=== PATIENT | female | born 1955 | race Caucasian/White ===

== ENCOUNTER 2018-11-19 06:55 | Emergency (ER) | payer BC ==
[~2018-11-19] VITALS: Ht 167.6 cm; Wt 61.2 kg
--- OUTSIDE RECORDS SUMMARY | 2018-11-19 06:58 | XMS REPORT ---
Author Author [facility] Address Unknown Phone Unavailable Care Team Providers Care Oracle Fusion Middleware Developer Name Role Phone Unavailable Unavailable Problems This patient has no known problems. Allergies, Adverse Reactions, Alerts This patient has no known allergies or adverse reactions. Medications This patient has no known medications. Encounters Start Date/Time End Date/Time Encounter Type Admission Type Attending [facility] Care Department Encounter ID 2018-04-20 00:00:00 2018-04-20 00:00:00 Outpatient [facility] [id number] 2018-04-02 00:00:00 2018-04-02 00:00:00 Outpatient [facility] [id number] 2018-03-08 00:00:00 2018-03-08 00:00:00 Outpatient [facility] [id number] 2018-02-23 00:00:00 2018-02-23 00:00:00 Outpatient [facility] [id number] 2018-02-16 00:00:00 2018-02-16 00:00:00 Outpatient [facility] [id number] 2018-02-14 00:00:00 2018-02-14 00:00:00 Outpatient [facility] [id number] 2018-02-06 14:08:50 2018-02-06 14:08:50 Outpatient [facility] [id number] 2018-02-02 00:00:00 2018-02-02 00:00:00 Outpatient [facility] [id number] 2018-01-29 09:17:04 2018-01-29 09:17:04 Outpatient [facility] [id number] 2018-01-15 00:00:00 2018-01-15 00:00:00 Outpatient [facility] [id number] 2018-01-12 00:00:00 2018-01-12 00:00:00 Outpatient [facility] [id number] 2018-01-11 00:00:00 2018-01-11 00:00:00 Outpatient [facility] [id number] 2017-12-29 13:00:10 2017-12-29 13:00:10 Outpatient [facility] [id number] 2017-12-29 00:00:00 2017-12-29 00:00:00 Outpatient [facility] [id number] 2017-12-22 00:00:00 2017-12-22 00:00:00 Outpatient [facility] [id number] 2017-11-20 00:00:00 2017-11-20 00:00:00 Outpatient [facility] [id number] 2017-11-20 00:00:00 2017-11-20 00:00:00 Outpatient [facility] [id number] 2017-11-02 00:00:00 2017-11-02 00:00:00 Outpatient [facility] [id number] 2017-10-24 00:00:00 2017-10-24 00:00:00 Outpatient [facility] [id number] 2017-10-13 09:36:00 2017-10-13 09:36:00 Outpatient [facility] [id number] 2017-09-28 00:00:00 2017-09-28 00:00:00 Outpatient [facility] [id number] 2017-09-20 00:00:00 2017-09-20 00:00:00 Outpatient [facility] [id number] 2017-09-13 00:00:00 2017-09-13 00:00:00 Outpatient [facility] [id number] 2017-09-08 00:00:00 2017-09-08 00:00:00 Outpatient [facility] [id number] 2017-08-01 00:00:00 2017-08-01 00:00:00 Outpatient [facility] [id number] 2017-07-10 00:00:00 2017-07-10 00:00:00 Outpatient [facility] [id number] 2017-07-06 00:00:00 2017-07-06 00:00:00 Outpatient [facility] [id number] 2017-07-04 00:00:00 2017-07-04 00:00:00 Outpatient [facility] [id number] 2017-06-09 10:33:42 2017-06-09 10:33:42 Outpatient [facility] [id number] 2017-06-07 00:00:00 2017-06-07 00:00:00 Outpatient [facility] [id number] 2017-06-06 16:25:18 2017-06-06 16:25:18 Outpatient [facility] [id number] 2017-05-29 07:57:03 2017-05-29 07:57:03 Outpatient [facility] [id number] 2017-05-29 00:00:00 2017-05-29 00:00:00 Outpatient [facility] [id number] 2017-05-26 00:00:00 2017-05-26 00:00:00 Outpatient [facility] [id number] 2017-05-12 00:00:00 2017-05-12 00:00:00 Outpatient [facility] [id number] 2017-04-26 00:00:00 2017-04-26 00:00:00 Outpatient [facility] [id number] 2017-04-20 00:00:00 2017-04-20 00:00:00 Outpatient [facility] [id number] 2017-03-29 00:00:00 2017-03-29 00:00:00 Outpatient [facility] [id number] 2017-03-23 00:00:00 2017-03-23 00:00:00 Outpatient [facility] [id number] 2017-03-13 00:00:00 2017-03-13 00:00:00 Outpatient [facility] [id number] 2017-03-13 00:00:00 2017-03-13 00:00:00 Outpatient [facility] [id number] 2017-03-10 11:23:38 2017-03-10 11:23:38 Outpatient [facility] [id number] 2017-03-01 10:07:22 2017-03-01 10:07:22 Outpatient [facility] [id number] 2017-02-22 00:00:00 2017-02-22 00:00:00 Outpatient [facility] [id number] 2017-02-22 00:00:00 2017-02-22 00:00:00 Outpatient [facility] [id number] 2017-02-22 00:00:00 2017-02-22 00:00:00 Outpatient [facility] [id number] 2017-02-21 20:52:35 2017-02-21 20:52:35 Emergency [facility] [id number] 2017-02-21 18:18:26 2017-02-21 18:18:26 Emergency [facility] [id number] 2017-02-21 10:12:08 2017-02-21 10:12:08 Emergency [facility] [id number] 2017-02-21 09:04:16 2017-02-21 09:04:16 Emergency [facility] [id number] 2017-02-16 00:00:00 2017-02-16 00:00:00 Outpatient [facility] [id number] 2017-02-14 12:12:37 2017-02-14 12:12:37 Outpatient [facility] [id number] 2017-02-14 08:10:22 2017-02-14 08:10:22 Outpatient [facility] [id number] 2017-02-10 00:00:00 2017-02-10 00:00:00 Outpatient [facility] [id number] 2017-02-06 00:00:00 2017-02-06 00:00:00 Outpatient [facility] [id number] 2016-08-10 07:59:53 2016-08-10 07:59:53 Outpatient [facility] [id number]
[2018-11-19] MEDS ORDERED: ONDANSETRON HCL 4 MG ORAL DISINTEGRATING TAB PO ONE (07:45)
--- NOTE | 2018-11-19 07:59 | NUR ---
PATIENT TO ROOM #6
[2018-11-19] MEDS ORDERED: IBUPROFEN 600 MG TAB PO STA (08:03)
[2018-11-19 08:20] LABS: CLARITY,URINE HAZY (CLEAR); COLOR,URINE ORANGE (YELLOW); KETONES,URINE NEGATIVE (NEGATIVE); LEUKOCYTE ESTERASE ,URINE 2+ (NEGATIVE); NITRITE,URINE POSITIVE (NEGATIVE); PROTEIN,URINE DIPSTICK TRACE (NEGATIVE)
[2018-11-19 08:21] LABS: BILIRUBIN,URINE NEGATIVE (NEGATIVE); URINE UROBILINOGEN 0.2 mg/dL (0.2 - 1)
[2018-11-19 08:34] LABS: BACTERIA,URINE MODERATE /HPF; EPITHELIAL CELLS,URINE FEW /LPF; WBC,URINE (MAN) >50 /HPF (0-5)
[2018-11-19] MEDS ORDERED: CEFTRIAXONE SOD 1 GM VIAL IM ONE (08:45)
[2018-11-19] MEDS ORDERED: LIDOCAINE HCL 1% 2 ML AMP ONE (08:57)
== END 2018-11-19 09:34 | disposition home or self-care (01) ==
LOC: ER 06:55
DX: R30.0 Dysuria (principal); R10.2 Pelvic and perineal pain; N30.91 Cystitis, unspecified with hematuria
CPT/HCPCS: 81001; 87086; 87186; 99283; J0696; J2001; Q0162

== ENCOUNTER 2020-08-21 12:14 | Emergency (ER) | payer MEDICARE, BC ==
[~2020-08-21] VITALS: Ht 167.6 cm; Wt 61.2 kg
[2020-08-21] MEDS ORDERED: ONDANSETRON HCL INJ 2MG/ML 2ML 2 MG/ML VIAL IV ONE ×2 (12:21→13:35)
[2020-08-21] MEDS ORDERED: SODIUM CHLORIDE 0.9% 1000ML 1,000 ML IV STA (12:21)
[2020-08-21] MEDS ORDERED: KETOROLAC TROMETHAMINE 30 MG/ML VIAL IV ONE (12:21)
--- NOTE | 2020-08-21 12:25 | Emergency Department Note ---
History of Present Illnes History of Present Illness Chief Complaint: Flank Pain History of Present Illness This is a 65 year old female with week long h/o of urethral pain. Prio r h/o of kidney stones and decreased R renal function. (+) nausea . Historian: Patient Arrival Mode: Car Onset (how long ago): week(s) (1) Location: suprapubic Radiation: Reports non-radiation Severity: moderate Onset quality: gradual Duration (how long): week(s) (1) Timing of current episode: constant Progression: worsening Chronicity: new Relieving factors: none Exacerbating factors: none Associated symptoms: Reports nausea/vomiting Treatments prior to arrival: none Previous service: tests performed, re-evaluation Past Medical/Family History Physician Review I have reviewed the patient's past medical and family history. Any updates have been documented here. Past Medical History Recent Fever: No Clinical Suspicion of Infectio: No New/Unexplained Change in Ment: No Past Medical History: Hypertension Other Medical History: HIATAL HERNIA Past Surgical History: Hernia Repair Other Surgery: HIATAL HERNIA REPAIR Social History Smoking Cessation: Current some day smoker Counseling Performed: Yes Alcohol Use: None Any Illegal Drug Use: No Other Last Tetanus: UTD Review of Systems Review of Systems Constitutional: Reports no symptoms EENTM: Reports no symptoms Cardiovascular: Reports no symptoms Respiratory: Reports no symptoms Gastrointestinal: Reports nausea Genitourinary: Reports pain (urethral) Musculoskeletal: Reports no symptoms Integumentary: Reports no symptoms Neurological: Reports no symptoms Psychological: Reports no symptoms Endocrine: Reports no symptoms Hematological/Lymphatic: Reports no symptoms Physical Exam Related Data Allergies: Coded Allergies: ciprofloxacin (Verified Allergy, Mild, NAUSEA, 08/21/20) Triage Vital Signs Vital Signs Date Time Temp Pulse Resp B/P (MAP) Pulse Ox O2 Delivery O2 Flow Rate FiO2 08/21/20 12:18 82 20 173/111 100 Room Air 08/21/20 12:35 97.8 Vital signs reviewed: Yes Physical Exam CONSTITUTIONAL Constitutional: Present well-developed, Present well-nourished HENT HENT: Present normocephalic, Present atraumatic, Present oropharynx clear/moist, Present nose normal HENT L/R: Present left ext ear normal, Present right ext ear normal EYES Eyes: Reports PERRL, Reports conjunctivae normal NECK Neck: Present ROM normal PULMONARY Pulmonary: Present effort normal, Present breath sounds normal CARDIOVASCULAR Cardiovascular: Present regular rhythm, Present heart sounds normal, Present capillary refill normal, Present normal rate GASTROINTESTINAL Abdominal: Present soft, Present tender (suprapubic) GENITOURINARY Genitourinary: Present exam deferred SKIN Skin: Present warm, Present dry MUSCULOSKELETAL Musculoskeletal: Present ROM normal NEUROLOGICAL Neurological: Present alert, Present oriented x 3, Present no gross motor or sensory deficits PSYCHOLOGICAL Psychological: Present mood/affect normal, Present judgement normal Results Laboratory Lab results reviewed: Yes Laboratory comments Laboratory Tests Test 08/21/20 12:25 White Blood Count 5.24 x10e3/uL (4.8-10.8) Red Blood Count 4.70 x10e6/uL (3.6-5.1) Hemoglobin 11.2 g/dL (12.0-16.0) Hematocrit 36.5 % (34.2-44.1) Mean Corpuscular Volume 77.7 fL (81-99) Mean Corpuscular Hemoglobin 23.8 pg (28-32) Mean Corpuscular Hemoglobin Concent 30.7 g/dL (31-35) Red Cell Distribution Width 24.1 % (11.7-14.4) Platelet Count 199 x10e3/uL (140-360) Neutrophils (%) (Auto) 55.5 % (38.7-80.0) Lymphocytes (%) (Auto) 35.3 % (18.0-39.1) Monocytes (%) (Auto) 5.7 % (4.4-11.3) Eosinophils (%) (Auto) 2.3 % (0.0-6.0) Basophils (%) (Auto) 0.8 % (0.0-1.0) Neutrophils # (Auto) 2.9 (2.1-6.9) Lymphocytes # (Auto) 1.9 (1.0-3.2) Monocytes # (Auto) 0.3 (0.2-0.8) Eosinophils # (Auto) 0.1 (0.0-0.4) Basophils # (Auto) 0.0 (0.0-0.1) Absolute Immature Granulocyte (auto 0.02 x10e3/uL (0-0.1) Urine Color [place] (YELLOW) Urine Clarity Clear (CLEAR) Urine pH 5.5 (5 - 7) Urine Specific [place] 1.010 (1.010-1.025) Urine Protein Negative (NEGATIVE) Urine Glucose (UA) 1+ (NEGATIVE) Urine Ketones Negative (NEGATIVE) Urine Blood Trace (NEGATIVE) Urine Nitrite Positive (NEGATIVE) Urine Bilirubin Negative (NEGATIVE) Urine Urobilinogen 0.2 mg/dL (0.2 - 1) Urine Leukocyte Esterase Negative (NEGATIVE) Urine RBC 6-10 /HPF (0-5) Urine WBC 6-10 /HPF (0-5) Urine Epithelial Cells Few /LPF (NONE) Urine Bacteria Few /HPF (NONE) Sodium Level 129 mmol/L (136-145) Potassium Level 4.5 mmol/L (3.5-5.1) Chloride Level 103 mmol/L (98-107) Carbon Dioxide Level 18 mmol/L (22-29) Anion Gap 12.5 mmol/L (8-16) Blood Urea Nitrogen 20 mg/dL (7-26) Creatinine 1.24 mg/dL (0.57-1.11) Estimat Glomerular Filtration Rate 43 ML/MIN (60-) BUN/Creatinine Ratio 16 (6-25) Glucose Level 116 mg/dL (74-118) Calcium Level 8.9 mg/dL (8.4-10.2) Total Bilirubin 0.2 mg/dL (0.2-1.2) Aspartate Amino Transf (AST/SGOT) 19 IU/L (5-34) Alanine Aminotransferase (ALT/SGPT) 13 IU/L (0-55) Alkaline Phosphatase 50 IU/L (40-150) Total Protein 7.4 g/dL (6.5-8.1) Albumin 4.0 g/dL (3.5-5.0) Globulin 3.4 g/dL (2.3-3.5) Albumin/Globulin Ratio 1.2 (0.8-2.0) Imaging Imaging results reviewed: Yes Impressions [place] [id number] Patient Name: TODD AVENDAÑO MR #: [id number] : 1955 Age/Sex: 65/F Req #: [id number] Adm Physician: Ordered by: SUYAPA HUDSON DO Report #: [id number] Location: ER Room/Bed: Procedure: [id number] CT/CT ABDOMEN/PELVIS WO Exam Date: 08/21/20 Exam Time: 1400 REPORT STATUS: Signed TECHNIQUE: CT of the abdomen and pelvis WITHOUT intravenous contrast and without oral contrast. Dose modulation, iterative reconstruction, and/or weight-based adjustment of the mA/kV was utilized to reduce the radiation dose to as low as reasonably achievable. INDICATION: ^suprapubic pain, ^[id number] ^1400. COMPARISON: None. FINDINGS: ABSENCE OF INTRAVENOUS CONTRAST DECREASES SENSITIVITY FOR DETECTION OF FOCAL LESIONS AND VASCULAR PATHOLOGY. LOWER THORAX: Bibasilar subsegmental atelectasis. HEPATOBILIARY: No focal hepatic lesions. Gallbladder is unremarkable. No biliary ductal dilatation. SPLEEN: No splenomegaly. PANCREAS: No focal masses or ductal dilatation. ADRENALS: No adrenal nodules. KIDNEYS/URETERS: Marked right renal cortical scarring. 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 There is minimal, focal hyperdensity in this region. However, this is not favored to be a stone. PELVIC ORGANS/BLADDER: Unremarkable. PERITONEUM/RETROPERITONEUM: No free air or fluid. There is mild, nonspecific fat stranding surrounding the celiac axis and superior mesenteric artery. LYMPH NODES: No lymphadenopathy. VESSELS: Moderate calcification of the infrarenal abdominal aorta and common iliac vasculature. GI TRACT: No distention or wall thickening. Moderate diverticulosis of the sigmoid colon. The appendix is normal. BONES AND SOFT TISSUES: Moderate degenerative changes of the hips. Moderate degenerative disc changes at L5-S1. IMPRESSION: 1. 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 2. The mild fat stranding around the celiac axis and superior mesenteric artery is nonspecific and could be within the spectrum of normal for this patient. However, arteritis is in the differential. 3. There is mild hyperdensity at the right ureteropelvic junction along the wall which may be a focal wall calcification. A stone is possible but considered less likely. A follow-up CT urogram is recommended in 3 months to evaluate for either resolution or a neoplasm. Signed by: Mason Sy JR, MD on 08/21/2020 3:44 PM Dictated By: MASON SY MD 43 Transcribed By: GISELL on 08/21/201543 COPY TO: SUYAPA HUDSON DO~ Assessment & Plan Medical Decision Making MDM Diff Dx : UTI, pelvic/uterine CA, uterolithiasis, kidney stone Assessment & Plan Final Impression: (1) Hyponatremia (2) Pelvic pain SUYAPA HUDSON DO Aug 21, 2020 12:25
[2020-08-21 12:31] LABS: BASOPHILS % 0.8 % (0.0-1.0); EOSINOPHILS # (AUTO) 0.1 (0.0-0.4); EOSINOPHILS % 2.3 % (0.0-6.0); HEMATOCRIT 36.5 % (34.2-44.1); HEMOGLOBIN 11.2 g/dL (12.0-16.0); LYMPHOCYTES # (AUTO) 1.9 (1.0-3.2); LYMPHOCYTES % 35.3 % (18.0-39.1); MEAN CORPUSCULAR HEMOGLOBIN 23.8 pg (28-32); MEAN CORPUSCULAR HGB CONC 30.7 g/dL (31-35); MEAN CORPUSCULAR VOLUME 77.7 fL (81-99); MONOCYTES # (AUTO) 0.3 (0.2-0.8); MONOCYTES % 5.7 % (4.4-11.3); NEUTROPHILS # (AUTO) 2.9 (2.1-6.9); NEUTROPHILS % 55.5 % (38.7-80.0); PLATELET COUNT 199 x10e3/uL (140-360); RED CELL DISTRIBUTION WIDTH 24.1 % (11.7-14.4)
[2020-08-21] MEDS ORDERED: KETOROLAC TROMETHAMINE 30 MG/ML VIAL ONE (12:31)
[2020-08-21] MEDS ORDERED: ONDANSETRON HCL INJ 2MG/ML 2ML 2 MG/ML VIAL ONE (12:31)
[2020-08-21] MEDS ORDERED: SODIUM CHLORIDE 0.9% 1000ML 1,000 ML ONE (12:31)
[2020-08-21 12:52] LABS: ALBUMIN/GLOBULIN RATIO 1.2 (0.8-2.0); ANION GAP 12.5 mmol/L (8-16); CALCIUM 8.9 mg/dL (8.4-10.2); CREATININE, SERUM 1.24 mg/dL (0.57-1.11); POTASSIUM 4.5 mmol/L (3.5-5.1)
[2020-08-21 13:26] LABS: CLARITY,URINE CLEAR (CLEAR); COLOR,URINE ORANGE (YELLOW)
[2020-08-21 13:27] LABS: LEUKOCYTE ESTERASE ,URINE NEGATIVE (NEGATIVE); NITRITE,URINE POSITIVE (NEGATIVE); PROTEIN,URINE DIPSTICK NEGATIVE (NEGATIVE)
[2020-08-21 13:28] LABS: KETONES,URINE NEGATIVE (NEGATIVE); URINE UROBILINOGEN 0.2 mg/dL (0.2 - 1)
[2020-08-21 13:29] LABS: BILIRUBIN,URINE NEGATIVE (NEGATIVE)
[2020-08-21] MEDS ORDERED: MORPHINE SULFATE INJ 4 MG/ML INJ 1ML IV ONE (13:35)
[2020-08-21 13:42] LABS: BACTERIA,URINE FEW /HPF; EPITHELIAL CELLS,URINE FEW /LPF
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
--- NOTE | 2020-08-21 15:47 | Diagnostic Imaging Report ---
TECHNIQUE: CT of the abdomen and pelvis WITHOUT intravenous contrast and without oral contrast. Dose modulation, iterative reconstruction, and/or weight-based adjustment of the mA/kV was utilized to reduce the radiation dose to as low as reasonably achievable. INDICATION: ^suprapubic pain, ^[id number] ^[id number]. COMPARISON: None. FINDINGS: ABSENCE OF INTRAVENOUS CONTRAST DECREASES SENSITIVITY FOR DETECTION OF FOCAL LESIONS AND VASCULAR PATHOLOGY. LOWER THORAX: Bibasilar subsegmental atelectasis. HEPATOBILIARY: No focal hepatic lesions. Gallbladder is unremarkable. No biliary ductal dilatation. SPLEEN: No splenomegaly. PANCREAS: No focal masses or ductal dilatation. ADRENALS: No adrenal nodules. KIDNEYS/URETERS: Marked right renal cortical scarring. 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 There is minimal, focal hyperdensity in this region. However, this is not favored to be a stone. PELVIC ORGANS/BLADDER: Unremarkable. PERITONEUM/RETROPERITONEUM: No free air or fluid. There is mild, nonspecific fat stranding surrounding the celiac axis and superior mesenteric artery. LYMPH NODES: No lymphadenopathy. VESSELS: Moderate calcification of the infrarenal abdominal aorta and common iliac vasculature. GI TRACT: No distention or wall thickening. Moderate diverticulosis of the sigmoid colon. The appendix is normal. BONES AND SOFT TISSUES: Moderate degenerative changes of the hips. Moderate degenerative disc changes at L5-S1. IMPRESSION: 1. 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 2. The mild fat stranding around the celiac axis and superior mesenteric artery is nonspecific and could be within the spectrum of normal for this patient. However, arteritis is in the differential. 3. There is mild hyperdensity at the right ureteropelvic junction along the wall which may be a focal wall calcification. A stone is possible but considered less likely. A follow-up CT urogram is recommended in 3 months to evaluate for either resolution or a neoplasm. Signed by: Mason Sy JR, MD on 08/21/2020 3:44 PM
== END 2020-08-21 16:30 | disposition home or self-care (01) ==
LOC: ER 12:30
DX: R10.2 Pelvic and perineal pain (principal); E87.1 Hypo-osmolality and hyponatremia; R11.0 Nausea; K57.30 Diverticulosis of large intestine without perforation or abscess without bleeding; I10 Essential (primary) hypertension; F17.210 Nicotine dependence, cigarettes, uncomplicated
CPT/HCPCS: 36415; 74176; 80053; 81001; 85025; 99284; J1885; J2270; J2405; J7030

== ENCOUNTER 2025-05-10 19:20 | Inpatient (IN) | payer BC, MEDICARE ==
[~2025-05-10] VITALS: Ht 167.6 cm; Wt 68.0 kg
[2025-05-10 20:47] VITALS: TEMP 98.4
[2025-05-10] MEDS ORDERED: SODIUM CHLORIDE FLUSH 10 ML SYR IV PRN (21:00)
[2025-05-10 21:16] LABS: BASOPHILS % 0.1 % (0.0-1.0); EOSINOPHILS % 0.6 % (0.0-6.0); LYMPHOCYTES % 15.6 % (18.0-39.1); MONOCYTES % 7.7 % (4.4-11.3); NEUTROPHILS % 74.7 % (38.7-80.0); RED CELL DISTRIBUTION WIDTH 25.8 % (11.7-14.4)
[2025-05-10 21:45] LABS: EST GLOMERULAR FILTRATION RATE 30.0 ML/MIN (>=60)
[2025-05-10 23:00] LABS: ABG BASE EXCESS -15.0 mmol/L (-2 - 3); ABG HCO3 12 mmol/L (22-26); ABG PCO2 27 mmHg (35-45); ABG PH 7.26 (7.35-7.45); ABG PO2 100 mmHg (80-105); ABG TCO2 13
[2025-05-10 23:01] LABS: ABG OXYGEN SATURATION 97.0 % (95-98)
[2025-05-10 23:17] LABS: ETHANOL < 10.0 mg/dL (0.0-10.0)
[2025-05-10] MEDS: Morphine 4mg INJECTION 4 MG/ML INJ IV ONE (23:25)
[2025-05-10] MEDS: ONDANSETRON HCL INJ 2MG/ML 2ML 2 MG/ML VIAL IV STA (23:26)
[2025-05-10] MEDS: SODIUM CHLORIDE 0.9% 1000ML 1,000 ML IV ONE (23:26)
[2025-05-11] VITALS (8 sets, daily range): BP systolic 129–177; BP diastolic 62–88; PULSE 71–102; RESP 13–22; TEMP 97.4–98.7; O2SAT 100
[2025-05-11 00:12] LABS: AMPHETAMINES SCREEN,URINE NEGATIVE (NEGATIVE); CANNABINOIDS SCREEN,URINE NEGATIVE (NEGATIVE); COCAINE SCREEN,URINE NEGATIVE (NEGATIVE); METHADONE SCREEN, URINE NEGATIVE (NEGATIVE); OPIATES SCREEN,URINE POSITIVE (NEGATIVE)
[2025-05-11 00:42] LABS: LEUKOCYTE ESTERASE ,URINE NEGATIVE (NEGATIVE)
[2025-05-11 00:43] LABS: EPITHELIAL CELLS,URINE FEW /LPF; PROTEIN,URINE DIPSTICK 1+ (NEGATIVE); URINE UROBILINOGEN 0.2 mg/dL (0.2 - 1); WBC,URINE (MAN) 0-5 /HPF (0-5)
[2025-05-11] MEDS: ENOXAPARIN INJ 80 MG/0.8 ML SYR SC SCH (00:48)
[2025-05-11 00:50] LABS: HYALINE CASTS 0-1 (0-1)
[2025-05-11] MEDS: LABETALOL HCL 5 MG/ML 20ML VIAL IV PRN (01:40)
[2025-05-11] MEDS: HYDROCODONE/APAP 7.5MG-325MG 1 EA TAB PO PRN (03:05)
[2025-05-11] MEDS: LACTATED RINGER'S 1,000 ML INJ SCH (03:06)
[2025-05-11] MEDS: SODIUM CHLORIDE 0.9% 250ML 250 ML ONE (03:12)
[2025-05-11] MEDS: SODIUM CHLORIDE 0.9% 250ML 250 ML IV ONE (03:12)
[2025-05-11] MEDS ORDERED: LEXAPRO20 MG PO (03:57)
[2025-05-11] MEDS ORDERED: LASIX20 MG PO (03:57)
[2025-05-11] MEDS ORDERED: XARELTO10 MG PO (03:57)
[2025-05-11] MEDS ORDERED: NEURONTIN300 MG PO (03:57)
[2025-05-11] MEDS ORDERED: LISINOPRIL10 MG PO (03:59)
[2025-05-11] MEDS: Morphine 2mg Syringe 2 MG/ML SYR IV PRN (07:40)
[2025-05-11] MEDS: HYDROMORPHONE 1MG/1ML INJ IV PRN (12:59)
[2025-05-11] MEDS: GABAPENTIN 300 MG CAP PO SCH (15:06)
[2025-05-11] MEDS: CLONAZEPAM 1 MG TAB PO SCH (15:06)
[2025-05-11] MEDS: METHYLPREDNISOLONE SOD SUCC 125 MG/2ML VIAL IV ONE (15:06)
[2025-05-11] MEDS: METOPROLOL TARTRATE 25 MG TAB PO SCH (16:36)
[2025-05-11 18:57] LABS: BODY FLUID APPEARANCE CLOUDY; BODY FLUID COLOR YELLOW; BODY FLUID TYPE SYNOVIAL
[2025-05-11 19:16] LABS: WBC,BODY FLUID 26254 cells/uL
[2025-05-11 20:15] LABS: LYMPHOCYTES,BODY FLUID 7 %; MONO/MACROPHG,BODY FLUID 2 %; NEUTROPHILS,BODY FLUID 91 %; TOTAL CELLS COUNTED (DIFF) 100
[2025-05-12] VITALS (8 sets, daily range): BP systolic 128–152; BP diastolic 65–85; PULSE 69–109; RESP 17–20; TEMP 98.2–98.9; O2SAT 99–100
[2025-05-12 06:01] LABS: BASOPHILS % 0.1 % (0.0-1.0); EOSINOPHILS % 0.0 % (0.0-6.0); LYMPHOCYTES % 6.8 % (18.0-39.1); MONOCYTES % 1.7 % (4.4-11.3); NEUTROPHILS % 90.1 % (38.7-80.0); RED CELL DISTRIBUTION WIDTH 24.6 % (11.7-14.4)
[2025-05-12 06:28] LABS: EST GLOMERULAR FILTRATION RATE 64.0 ML/MIN (>=60)
[2025-05-12] MEDS: HYDROCODONE/APAP 5MG-325MG TAB PO PRN (06:32)
[2025-05-12 07:49] LABS: LYMPHOCYTES % (MANUAL) 4 % (19-48); MONOCYTES % (MANUAL) 3 % (3.4-9.0); NEUTROPHILS % (MANUAL) 93 % (40-74)
[2025-05-12 07:50] LABS: PLATELET ESTIMATE ADEQUATE; PLATELET MORPHOLOGY COMMENT NORMAL; RBC MORPHOLOGY COMMENT ABNORMAL
[2025-05-12] MEDS: ESCITALOPRAM OXALATE 10 MG TAB PO SCH (08:41)
[2025-05-12] MEDS: ONDANSETRON HCL INJ 2MG/ML 2ML 2 MG/ML VIAL IV PRN (09:38)
[2025-05-12] MEDS: SODIUM BICARBONATE 650 MG TAB PO SCH (10:09)
[2025-05-12 10:58] LABS: EST GLOMERULAR FILTRATION RATE 76.0 ML/MIN (>=60)
[2025-05-12] MEDS: SODIUM CHLORIDE 0.9% 250ML 250 ML ONE (13:56)
[2025-05-13] VITALS (7 sets, daily range): BP systolic 137–147; BP diastolic 56–85; PULSE 72–93; RESP 17–18; TEMP 97.9–98.8; O2SAT 96–100
[2025-05-13 03:38] LABS: % IRON SATURATION 6.0 % (15-50)
[2025-05-13 06:37] LABS: BASOPHILS % 0.1 % (0.0-1.0); EOSINOPHILS % 0.7 % (0.0-6.0); LYMPHOCYTES % 13.8 % (18.0-39.1); MONOCYTES % 5.9 % (4.4-11.3); NEUTROPHILS % 78.5 % (38.7-80.0); RED CELL DISTRIBUTION WIDTH 24.8 % (11.7-14.4)
[2025-05-13 07:02] LABS: EST GLOMERULAR FILTRATION RATE 67.0 ML/MIN (>=60)
[2025-05-13 09:50] LABS: LYMPHOCYTES % (MANUAL) 6 % (19-48); MONOCYTES % (MANUAL) 5 % (3.4-9.0); NEUTROPHILS % (MANUAL) 89 % (40-74); NUCLEATED RED BLOOD CELLS 1
[2025-05-13 09:52] LABS: PLATELET ESTIMATE ADEQUATE; PLATELET MORPHOLOGY COMMENT NORMAL; RBC MORPHOLOGY COMMENT ABNORMAL
[2025-05-13] MEDS: SODIUM CHLORIDE 0.9% 250ML 250 ML IV ONE ×2 (13:23→15:40)
[2025-05-14 05:03] VITALS: BP 169/74; PULSE 70; RESP 18; TEMP 97.9; O2SAT 95
[2025-05-14 06:27] LABS: EST GLOMERULAR FILTRATION RATE 90.0 ML/MIN (>=60)
[2025-05-14 06:29] LABS: % IRON SATURATION 5 % (15-50)
[2025-05-14 07:03] VITALS: BP 162/78; PULSE 80; RESP 16; TEMP 97.6; O2SAT 98
[2025-05-14 09:00] VITALS: BP 162/78; PULSE 80; RESP 16; TEMP 97.6; O2SAT 98
[2025-05-14] MEDS: IRON SUCROSE 100 MG in SODIUM CHLORIDE 0.9% 100 ML IV SCH (09:07)
[2025-05-14 12:12] VITALS: BP 139/70; PULSE 64; RESP 19; TEMP 98.7; O2SAT 98
[2025-05-14 16:55] VITALS: BP 150/70; PULSE 71; RESP 16; TEMP 98.3; O2SAT 100
[2025-05-14 20:00] VITALS: BP 151/64; PULSE 62; RESP 16; TEMP 97.9; O2SAT 100
[2025-05-15] VITALS (9 sets, daily range): BP systolic 136–156; BP diastolic 64–81; PULSE 61–75; RESP 16–20; TEMP 97.6–98.2; O2SAT 97–100
[2025-05-15] MEDS: LACTATED RINGER'S 1,000 ML INJ SCH (17:33)
[2025-05-16] VITALS (8 sets, daily range): BP systolic 144–162; BP diastolic 76–83; PULSE 60–69; RESP 16–18; TEMP 97.4–98.2; O2SAT 99–100
[2025-05-16 06:18] LABS: BASOPHILS % 0.1 % (0.0-1.0); EOSINOPHILS % 1.0 % (0.0-6.0); LYMPHOCYTES % 15.7 % (18.0-39.1); MONOCYTES % 9.0 % (4.4-11.3); NEUTROPHILS % 73.6 % (38.7-80.0); RED CELL DISTRIBUTION WIDTH 23.2 % (11.7-14.4)
[2025-05-16 06:57] LABS: EST GLOMERULAR FILTRATION RATE 93.0 ML/MIN (>=60)
[2025-05-16 08:01] LABS: ENDOMYSIAL ANTIBODIES, IGA Negative (Negative)
[2025-05-16 08:17] LABS: TISSUE TRANSGLUTAMINASE IGA AB <2 U/mL (0-3)
[2025-05-16] MEDS: SODIUM CHLORIDE 0.9% 250ML 250 ML IV ONE ×2 (15:08→15:19)
[2025-05-16] MEDS: SODIUM CHLORIDE 0.9% 250ML 250 ML ONE (15:19)
[2025-05-16] MEDS: DEXAMETHASONE SOD PHOS 10 MG/1 ML VIAL IV ONE (16:16)
[2025-05-17 08:10] VITALS: BP 146/84; PULSE 76; RESP 18; TEMP 98.3; O2SAT 99
[2025-05-17 09:00] VITALS: BP 146/84; PULSE 76; RESP 18; TEMP 98.3; O2SAT 99
[2025-05-17] MEDS ORDERED: LISINOPRIL 10 MG TAB PO SCH (09:00)
[2025-05-17] MEDS: AMLODIPINE BESYLATE 5 MG TAB PO SCH (09:55)
[2025-05-17] MEDS: DEXAMETHASONE SOD PHOS 10 MG/1 ML VIAL IV ONE (10:09)
[2025-05-17 11:15] VITALS: BP 146/92; PULSE 69; RESP 18; TEMP 97.9; O2SAT 99
[2025-05-21 06:35] LABS: ABG BASE EXCESS -15.0 mmol/L (-2 - 3); ABG HCO3 12 mmol/L (22-26); ABG OXYGEN SATURATION 97.0 % (95-98); ABG PCO2 27 mmHg (35-45); ABG PH 7.26 (7.35-7.45); ABG PO2 100 mmHg (80-105); ABG TCO2 13
== END 2025-05-17 11:50 | disposition home health service (06) | DRG 565 ==
LOC: ER 21:04 → ERHOLD 05-11 01:53 → MED/SURG2 05-11 02:41 → OBSVTOIN 05-12 12:00
PROVIDERS: ADMIT Internal Medicine; ATTEND Internal Medicine
PROC: 4A033R1 Measurement of Arterial Saturation, Peripheral, Percutaneous Approach (ICD-10-PCS; 2025-05-10)
PROC: 4A033R1 Measurement of Arterial Saturation, Peripheral, Percutaneous Approach (ICD-10-PCS; 2025-05-10)
PROC: 0S9D3ZX Drainage of Left Knee Joint, Percutaneous Approach, Diagnostic (ICD-10-PCS; principal; 2025-05-11)
PROC: 30233N1 Transfusion of Nonautologous Red Blood Cells into Peripheral Vein, Percutaneous Approach (ICD-10-PCS; 2025-05-11)
PROC: 30233N1 Transfusion of Nonautologous Red Blood Cells into Peripheral Vein, Percutaneous Approach (ICD-10-PCS; 2025-05-13)
PROC: 30233N1 Transfusion of Nonautologous Red Blood Cells into Peripheral Vein, Percutaneous Approach (ICD-10-PCS; 2025-05-16)
DX: M25.462 Effusion, left knee (principal); E87.20 Acidosis, unspecified; N17.9 Acute kidney failure, unspecified; Q60.0 Renal agenesis, unilateral; D50.9 Iron deficiency anemia, unspecified; M17.12 Unilateral primary osteoarthritis, left knee; M25.862 Other specified joint disorders, left knee; I48.0 Paroxysmal atrial fibrillation; Z79.01 Long term (current) use of anticoagulants; I10 Essential (primary) hypertension; D63.8 Anemia in other chronic diseases classified elsewhere; I49.5 Sick sinus syndrome; Z95.0 Presence of cardiac pacemaker; D72.829 Elevated white blood cell count, unspecified; E11.40 Type 2 diabetes mellitus with diabetic neuropathy, unspecified; R53.81 Other malaise; M10.9 Gout, unspecified; F41.9 Anxiety disorder, unspecified; K21.9 Gastro-esophageal reflux disease without esophagitis; G40.909 Epilepsy, unspecified, not intractable, without status epilepticus; F17.200 Nicotine dependence, unspecified, uncomplicated; Z79.899 Other long term (current) drug therapy
CPT/HCPCS: 36415; 36600; 71045; 80048; 80053; 80307; 80320; 80329; 81001; 82270; 82607; 82728; 82746; 82784; 82805; 83010; 83516; 83540; 83605; 83615; 83880; 83993; 84443; 84466; 84484; 85014; 85018; 85025; 85045; 85379; 86256; 86850; 86900; 86920; 87071; 87075; 87205; 89051; 89060; 93005; 93306; 93971; 94760; 99284; G0378; J0696; J1100; J1171; J1650; J1756; J2270; J2405; J2470; J2919; J7030; J7050; P9016